=== PATIENT | male | born 1980 | race Caucasian/White ===

== ENCOUNTER 2024-12-16 17:10 | Emergency (ER) | payer OTHER ==
[2024-12-16 17:35] LABS: BLOOD UREA NITROGEN,BUN 20 mg/dL (7-18); CARBON DIOXIDE,CO2 29 mmol/L (21-32); CHLORIDE,CL 102 mmol/L (100-110); CREATININE 1.2 mg/dL (0.70-1.30); ESTIMATED GFR 76 mL/min (>60); GLUCOSE RANDOM 124 mg/dL (80-116); POTASSIUM,K 3.8 mmol/L (3.5-5.3); SODIUM,NA 140 mmol/L (135-145)
[2024-12-16 17:37] LABS: BASOPHILS ABSOLUTE AUTO 0.0 x10-3/uL (0.0-0.3); BASOPHILS PERCENT AUTO 0.5 % (0.3-3.8); EOSINOPHILS ABSOLUTE AUTO 0.3 x10-3/uL (0.0-0.6); EOSINOPHILS PERCENT AUTO 3.3 % (0.1-6.8); LYMPHOCYTES ABSOLUTE AUTO 2.6 x10-3/uL (0.5-4.5); LYMPHOCYTES PERCENT AUTO 32.3 % (15.8-45.3); MEAN PLATELET VOLUME 7.3 fL (6.7-11.0); MONOCYTES ABSOLUTE AUTO 0.6 x10-3/uL (0.0-1.2); MONOCYTES PERCENT AUTO 7.3 % (5.5-15.2); NEUTROPHILS ABSOLUTE AUTO 4.6 x10-3/uL (1.7-6.9); NEUTROPHILS PERCENT AUTO 56.6 % (40.3-71.8); PLATELET COUNT,PLT 265 x10(3)uL (117-477); RED BLOOD CELL COUNT 4.96 x10(6)uL (3.90-5.90); RED CELL DISTRIBUTION WIDTH 12.2 % (12.4-15.0); WHITE BLOOD CELL COUNT,WBC 8.1 x10-3/uL (3.2-10.1)
[2024-12-16 17:40] LABS: A/G RATIO 1.0; ALANINE AMINOTRANSFERASE,ALT 36 U/L (12-36); ASPARTATE AMNIOTRANSFERASE,AST 19 IU/L (5-25); BILIRUBIN TOTAL 0.5 mg/dL (0.1-1.3); PROTEIN TOTAL,TP 7.6 g/dL (6.0-8.0)
[2024-12-16] MEDS: LORazepam 2 MG/ML SDV IVPUSH ONE (17:49)
[2024-12-16] MEDS: Ondansetron 4 MG/2 ML SDV IVPUSH ONE (17:49)
== END 2024-12-16 18:53 | disposition home or self-care (01) ==
LOC: FB.ED 17:10
DX: R42 Dizziness and giddiness (principal)
CPT/HCPCS: 36415; 70450; 80053; 84484; 85025; 93005; 96374; 96375; 99284; A9270; J2060; J2405